=== PATIENT | female | born 1995 | race Hispanic/Latino ===

== ENCOUNTER 2018-08-24 12:17 | Emergency (ER) | payer OTHER, MEDICAID ==
[2018-08-24 13:05] LABS: #Basophils 0.1 thou/uL (0.0-0.2); #Eosinphils 0.9 thou/uL (0.0-0.7); #Lymphocytes 2.8 thou/uL (1.20-3.40); #Monocytes 0.7 thou/uL (0.11-0.59); #Neutrophils 6.6 thou/uL (1.40-6.50); %Basophils 0.9 % (0.0-1.0); %Eosinophils 8.1 % (0.0-10.0); %Lymphocytes 24.9 % (21.0-51.0); Hemoglobin 13.4 g/dL (12.0-16.0); Mean Corpuscular HGB CONC 33.9 g/dL (32.0-36.0); Mean Corpuscular Hemoglobin 29.5 pg (27.0-31.0); Mean Corpuscular Volume 87.1 fL (78.0-98.0); Mean Platelet Volume 8.3 fL (7.4-10.4); Platelet Count 327 thou/uL (130-400); RBC Distribution Width 12.1 % (11.5-14.5); Red Blood Cell (RBC) Count 4.55 mill/uL (4.20-5.40)
[2018-08-24 15:44] LABS: ALT (SGPT) 11 U/L (8-55); AST (SGOT) 15 U/L (5-34); Albumin 4.3 g/dL (3.5-5.0); Alkaline Phosphatase 69 U/L (40-150); Anion Gap 12 mmol/L (10-20); BUN (Urea Nitrogen) 8 mg/dL (7.0-18.7); Bilirubin, Total 0.6 mg/dL (0.2-1.2); Calc. Creatinine Clearance 0 mL/min (70-130); Calcium 9.2 mg/dL (7.8-10.44); Carbon Dioxide 23 mmol/L (22-29); Chloride 105 mmol/L (98-107); Estimated GFR-MDRD Greater than 90; Globulin 3.2 g/dL (2.4-3.5); Glucose 81 mg/dL (70-105); Potassium 3.6 mmol/L (3.5-5.1); Protein, Total 7.5 g/dL (6.0-8.3); Sodium 136 mmol/L (136-145)
[2018-08-24 15:54] LABS: Bilirubin Negative (Negative); Blood, Urine Large (Negative); Clarity CLEAR (Clear); Glucose, Urine (Dipstick) Negative (Negative); Leukocyte Small (Negative); Nitrite Negative (Negative); Protein, Urine (Dipstick) Negative (Neg-Trace); Specific Gravity, Urine 1.018 (1.002-1.036); Urobilinogen 0.2 mg/dL (0.2-1.0); pH, Urine 5.5 (5.0-9.0)
[2018-08-24 15:55] LABS: Bacteria/HPF None Seen HPF (None Seen); Hyaline Casts/LPF 0-3 HYALINE CAST LPF (0-3 Hyaline); Pathc Cast-AUWi Flag 0.14 (0-2.49); RBC/HPF GREATER THAN 50-TNTC HPF (0-3); Squamous Epithelial 0-3 HPF (0-3); WBC/HPF 0-3 HPF (0-3)
--- NOTE | 2018-08-24 16:15 | ULT ---
ULTRASOUND PELVIC ULTRASOUND TRANSVAGINAL DOPPLER DUPLEX: 08/24/18 HISTORY: 23-year-old female with pelvic pain and vaginal bleeding. TECHNIQUE: Transabdominal transducer used to evaluate intrapelvic contents using the urinary bladder as an acous tic window. Endovaginal transducer used to visualize intrapelvic contents in greater detail. Color fl ow Doppler and Pulsed Doppler spectral waveform analysis of ovaries. FINDINGS: Uterus: 7 x 4.5 x 6 cm. Endometrial stripe: 1.1 cm (11 mm). There is no intrauterine gestational sac. Right ovary: 2 x 3 x 2 cm. Left ovary: 2 x 3 x 2 cm. No uterine leiomyoma is identified. Blood flow is demonstrated in both ovaries. No ovarian cyst (defined as 2 cm or greater) is identified. No free fluid is in the cul-de-sac. IMPRESSION: Normal. jn [] POS: CET
== END 2018-08-24 16:30 | disposition home or self-care (01) ==
LOC: ERS 12:17
DX: O20.9 Hemorrhage in early pregnancy, unspecified (principal); Z3A.01 Less than 8 weeks gestation of pregnancy
CPT/HCPCS: 36415; 76856; 80053; 81003; 81015; 84702; 85025; 86900; 86901

== ENCOUNTER → 2018-08-26 | Emergency (ER) | payer OTHER, MEDICAID | LOC: ERS 09:32 | DX: O20.0 Threatened abortion (principal); Z3A.01 Less than 8 weeks gestation of pregnancy | CPT/HCPCS: 36415; 84702; 99284 ==

== ENCOUNTER 2019-12-06 15:11 | Inpatient (IN) | payer OTHER ==
[2019-12-07] MEDS ORDERED: Misoprostol 200 MCG TAB PR PRN (10:12)
[2019-12-07] MEDS ORDERED: Promethazine HCl 25 MG/ML VIAL IM PRN ×2 (10:12→11:53)
[2019-12-07] MEDS ORDERED: NS / Oxytocin 40 units/1000ml 1,000 ML IV PRN (10:12)
[2019-12-07] MEDS ORDERED: Acetaminophen 500 MG TAB PO PRN (10:12)
[2019-12-07] MEDS ORDERED: Ibuprofen 800 MG TAB PO PRN (10:12)
[2019-12-07] MEDS ORDERED: HYDROcodone/Acetaminophen 5/325 mg Tablet PO PRN ×2 (10:12)
[2019-12-07] MEDS ORDERED: Ondansetron PF 4 MG/2 ML Vial IVP PRN ×3 (10:12→18:33)
[2019-12-07] MEDS ORDERED: Butorphanol Tartrate 1 MG/ML VIAL SLOW IVP PRN (10:12)
[2019-12-07] MEDS ORDERED: hydrALAZINE 20 MG/ML VIAL SLOW IVP PRN ×2 (10:12→18:33)
[2019-12-07] MEDS ORDERED: NS w/ Oxytocin 10 units 500 ML IV SCH ×2 (10:12)
[2019-12-07] MEDS ORDERED: Diphenoxylate HCl/Atropine Tablet PO PRN ×2 (10:12)
[2019-12-07] MEDS ORDERED: Lidocaine 1% (PF) 30 ML VIAL SC PRN (10:12)
[2019-12-07] MEDS ORDERED: Docusate 100 MG CAP PO PRN (10:12)
[2019-12-07] MEDS: Lactated Ringer's 1,000 ML IV SCH ×2 (10:30→11:21)
[2019-12-07 10:31] VITALS: BMI 32.4
[2019-12-07] MEDS ORDERED: NS w/ Oxytocin 10 units 500 ML ONE (10:31)
[2019-12-07 10:40] LABS: Hemoglobin 11.1 g/dL (12.0-16.0); Mean Corpuscular HGB CONC 32.8 g/dL (32.0-36.0); Mean Corpuscular Hemoglobin 25.8 pg (27.0-31.0); Mean Corpuscular Volume 78.5 fL (78.0-98.0); Mean Platelet Volume 7.6 fL (7.4-10.4); Platelet Count 379 thou/uL (130-400); RBC Distribution Width 13.2 % (11.5-14.5); White Blood Cell (WBC) Count 10.7 thou/uL (4.8-10.8)
[2019-12-07 11:20] LABS: HBSAg Index 0.19 S/CO (0-0.99); Hep B Surf Ag Non-Reactive S/CO (NonReactive); Syphilis Antibody Nonreactive (Nonreactive); Syphilis Antibody Index 0.06 S/CO (<1.00 Non-Reactive)
[2019-12-07] MEDS ORDERED: Fentanyl 4 mcg/Bup 0.1% Cadd 100 ML ONE (11:26)
[2019-12-07] MEDS ORDERED: Bupivacaine 0.5% 10 ML VIAL ONE (11:29)
[2019-12-07] MEDS ORDERED: Fentanyl 100 MCG/2 ML VIAL ONE (11:29)
[2019-12-07] MEDS ORDERED: Acetaminophen 325 MG TAB PO PRN (11:53)
[2019-12-07] MEDS ORDERED: Naloxone HCl 0.4 mg/ml Vial IVP PRN ×2 (11:53)
[2019-12-07] MEDS ORDERED: Lactated Ringer's 500 ML IV PRN (11:53)
[2019-12-07] MEDS ORDERED: diphenhydrAMINE 50 MG/ML VIAL IVP PRN (11:53)
[2019-12-07] MEDS ORDERED: EPHEDRINE 25 MG/5 ML SYRINGE SLOW IVP PRN (11:53)
[2019-12-07] MEDS ORDERED: Fentanyl 100 MCG/2 ML VIAL I-THECAL ONE (11:54)
[2019-12-07] MEDS ORDERED: Fentanyl 4 mcg/Bupivacaine 0.1% Cassette 100 ML EPIDURAL SCH (12:00)
[2019-12-07] MEDS ORDERED: Communication Order-Pharmacy FS SCH (12:00)
[2019-12-07] MEDS ORDERED: Preparation H Ointment 28 GM TUBE PR PRN (18:33)
[2019-12-07] MEDS ORDERED: Acetaminophen/Codeine 30-300mg Tablet PO PRN ×2 (18:33)
[2019-12-07] MEDS ORDERED: Milk Of Magnesia 30 ML UDCUP PO PRN (18:33)
[2019-12-07] MEDS ORDERED: Bisacodyl 10 MG SUPP PR PRN (18:33)
[2019-12-07] MEDS ORDERED: Benzocaine-Menthol 82.5 ML CAN TOP PRN (18:33)
[2019-12-07] MEDS ORDERED: Zolpidem Tartrate 5 MG TAB PO PRN (18:33)
[2019-12-07] MEDS ORDERED: Lanolin Ointment 7 GM TUBE TOP PRN (18:33)
[2019-12-07] MEDS ORDERED: Misoprostol 200 MCG TAB VAG PRN (18:33)
[2019-12-07] MEDS ORDERED: diphenhydrAMINE 25 MG CAP PO PRN (18:33)
[2019-12-07] MEDS ORDERED: NS / Oxytocin 40 units/1000ml 1,000 ML IV SCH (18:45)
[2019-12-07] MEDS: Ibuprofen 800 MG TAB PO SCH (22:00)
[2019-12-07] MEDS: Docusate Calcium (SURFAK) 240 MG CAP PO SCH (22:25)
[2019-12-08] MEDS: Ibuprofen 800 MG TAB PO SCH ×2 (04:15→13:16)
[2019-12-08 06:17] LABS: Hemoglobin 10.3 g/dL (12.0-16.0)
[2019-12-08] MEDS: Docusate Calcium (SURFAK) 240 MG CAP PO SCH (08:06)
[2019-12-08] MEDS: Ferrous Sulfate 325 MG TAB PO SCH ×2 (08:06→16:03)
[2019-12-08] MEDS ORDERED: Prenatal Vitamin 1 TAB PO SCH (09:00)
[2019-12-08] MEDS ORDERED: Adacel (T-DAP) 0.5 ML SYRINGE IM ONE (09:00)
[2019-12-08 19:37] VITALS: BP 121/71; TEMP 98.1
== END 2019-12-08 20:30 | disposition home or self-care (01) | DRG 806 ==
LOC: L&D 12-07 10:04 → 3SW 12-07 21:38 → EDSTATUS 12-13 15:10
PROVIDERS: ADMIT Obstetrics & Gynecology; ATTEND Obstetrics & Gynecology
PROC: 10E0XZZ Delivery of Products of Conception, External Approach (ICD-10-PCS; principal; 2019-12-07)
PROC: 10907ZC Drainage of Amniotic Fluid, Therapeutic from Products of Conception, Via Natural or Artificial Opening (ICD-10-PCS; 2019-12-07)
DX: O99.02 Anemia complicating childbirth (principal); D62 Acute posthemorrhagic anemia; Z37.0 Single live birth; Z3A.39 39 weeks gestation of pregnancy; D64.89 Other specified anemias
CPT/HCPCS: 36415; 51702; 85014; 85018; 85027; 86780; 86850; 86900; 86901; 87340; J2590; J3010; J3490